=== PATIENT | male | born 1945 | race Asian ===

== ENCOUNTER 2023-02-19 10:37 | Outpatient (CLI) | payer MEDICARE | END 2023-02-19 10:38 | disposition home or self-care (01) | LOC: CSHMRI 10:37 | PROVIDERS: ATTEND Orthopaedic Surgery | DX: M23.307 Other meniscus derangements, unspecified meniscus, left knee (principal); S83.252A Bucket-handle tear of lateral meniscus, current injury, left knee, initial encounter; S83.242A Other tear of medial meniscus, current injury, left knee, initial encounter; M71.22 Synovial cyst of popliteal space [Baker], left knee; M94.8X6 Other specified disorders of cartilage, lower leg; M25.862 Other specified joint disorders, left knee ==

== ENCOUNTER 2023-07-13 13:28 | Outpatient (CLI) | payer MEDICARE | END 2023-07-13 13:29 | disposition home or self-care (01) | LOC: CSHULT 13:28 | PROVIDERS: ATTEND Internal Medicine | DX: R01.1 Cardiac murmur, unspecified (principal); I51.9 Heart disease, unspecified; I34.0 Nonrheumatic mitral (valve) insufficiency | CPT/HCPCS: 93306 ==